=== PATIENT | female | born 1985 | race Caucasian/White ===

== ENCOUNTER 2016-11-23 19:56 | Emergency (ER) | payer BC ==
[~2016-11-23] VITALS: Ht 170.2 cm; Wt 117.4 kg
[~2016-11-23 19:56] MED LIST: DOCUSATE SODIU100 MG PO; ENDOCET 5-3251 EACH PO; FLINTSTONES M100 MCG PO; IBUPROFEN800 MG PO; NAPROSYN500 MG PO; PREDNISONE20 MG PO; SYNTHROID50 MCG PO; VALIUM2 MG PO; ZITHROMAX Z-PA250 MG PO
[2016-11-23 21:08] LABS: EOSINOPHIL (%) 0.2 % (0-5); HEMATOCRIT 47.3 % (36.0-46.0); IMMATURE GRANULOCYTE (%) 0.3 % (0.0-0.7); IMMATURE GRANULOCYTE COUNT 0.5 K/uL; LYMPHOCYTE COUNT 0.7 K/uL (1.0-2.8); MCH 32.2 PG (29.0-34.0); MCHC 34.7 G/DL (30.0-36.0); MCV 92.7 FL (83-99); MONOCYTE (%) 5.1 % (3-12); MONOCYTE COUNT 0.9 K/uL (0-0.8); NEUTROPHIL (%) 90.4 % (45-76); NEUTROPHIL COUNT 16.4 K/uL (1.8-6.4); PLATELET COUNT 307 K/uL (156-360); RBC DIS.WIDTH-CV 13.2 % (11.8-14.6); RBC DIS.WIDTH-SD 43.4 % (39-53); WHITE BLOOD COUNT 18.1 K/uL (4.1-10.2)
[2016-11-23 21:16] LABS: CHLORIDE 106 mEq/L (99-109); POTASSIUM 3.8 mEq/L (3.7-5.4); SODIUM 142 mEq/L (136-147)
[2016-11-23 21:18] LABS: GLUCOSE 126 mg/dL (70-99)
[2016-11-23 21:19] LABS: ANION GAP 16 MEQ/L (2-14)
[2016-11-23 21:20] LABS: TOTAL BILIRUBIN 0.9 mg/dL (0.0-1.0)
[2016-11-23 21:21] LABS: ALKALINE PHOSPHATASE 118 IU/L (3-129)
[2016-11-23 21:22] LABS: GFR ESTIMATE (CALCULATED) > 59 mL/min/
[2016-11-23 21:23] LABS: UREA NITROGEN (BUN) 14 mg/dL (9-23)
[2016-11-23 21:25] LABS: LIPASE 18 U/L (1.0-51.0)
[2016-11-23 22:12] LABS: ADD MIUA? YES; BILIRUBIN NEGATIVE; BLOOD TRACE; COLOR YELLOW ((YELLOW)); GLUCOSE (STRIP) NEGATIVE; KETONES NEGATIVE; LEUKOCYTES NEGATIVE; NITRITE NEGATIVE; PH, URINE 5.5 (5-8); PROTEIN (STRIP) TRACE; SPECIFIC GRAVITY 1.029 (1.000-1.030); UROBILINOGEN 0.2 MG/DL (0.2-1.0)
[2016-11-23 22:24] LABS: BACTERIA NONE SEEN; CASTS NONE SEEN /LPF; CRYSTALS NONE SEEN; EPITHELIAL CELLS 1+; MUCUS NONE SEEN; PATHOLOGICAL CAST NONE SEEN; RED BLOOD CELLS 0-5 /HPF (0-5); SMALL ROUND CELL NONE SEEN; WHITE BLOOD CELLS 0-5 /HPF (0-5); YEAST-LIKE CELL NONE SEEN
[2016-11-23] MEDS ORDERED: PHENERGAN25 MG PR (23:18)
[2016-11-23] MEDS ORDERED: PROMETHAZINE HC25 M1 PO (23:18)
[2016-11-23 23:50] VITALS: BP 121/81
[2016-11-24 01:09] LABS: C DIFF TOXIN NEGATIVE (NEGATIVE)
[2016-11-24 01:10] LABS: PROBE CHECK PASS; SPECIMEN PROCESSING CONTROL PASS
== END 2016-11-23 23:51 | disposition home or self-care (01) ==
LOC: EME 19:56 → RME 19:56
PROVIDERS: Physician Assistant
DX: R11.2 Nausea with vomiting, unspecified (principal); R19.7 Diarrhea, unspecified; E86.0 Dehydration; E03.9 Hypothyroidism, unspecified
CPT/HCPCS: 80053; 81003; 83690; 85025; 87493; 87506; 99281; 99285; J1200; J1885; J2405; J2550; J2765; J7030; Q0169

== ENCOUNTER 2017-11-26 07:09 | Emergency (ER) | payer BC ==
[~2017-11-26] VITALS: Ht 167.6 cm; Wt 114.6 kg
[~2017-11-26 07:09] MED LIST changes: +PHENERGAN25 MG PR; +PROMETHAZINE HC25 M1 PO
[2017-11-26 07:52] LABS: HEMATOCRIT 42.7 % (36.0-46.0); HEMOGLOBIN 14.8 G/DL (11.9-15.5); MCHC 34.7 G/DL (30.0-36.0); MCV 92.4 FL (83-99); RBC DIS.WIDTH-CV 13.5 % (11.8-14.6); RBC DIS.WIDTH-SD 46.1 % (39-53); RED BLOOD COUNT 4.62 M/uL (3.80-5.20); WHITE BLOOD COUNT 14.4 K/uL (4.1-10.2)
[2017-11-26 08:01] LABS: CHLORIDE 107 mEq/L (99-109); POTASSIUM 4.3 mEq/L (3.7-5.4); SODIUM 137 mEq/L (136-147)
[2017-11-26 08:02] LABS: GLUCOSE 122 mg/dL (70-99)
[2017-11-26 08:06] LABS: CREATININE 0.7 mg/dL (0.6-1.3); GFR ESTIMATE (CALCULATED) > 59 mL/min/
[2017-11-26 08:07] LABS: UREA NITROGEN (BUN) 14 mg/dL (9-23)
[2017-11-26 08:13] LABS: TROP-I INTERPRETATION NEGATIVE; TROPONIN-I 0.03 ng/mL (0.0-0.30)
[2017-11-26 08:57] LABS: PLAT.SUFFICIENCY ADEQUATE; PLATELET COUNT 253 K/uL (156-360)
[2017-11-26] MEDS ORDERED: TORADOL10 MG PO (10:44)
[2017-11-26] MEDS ORDERED: REGLAN10 MG PO (10:44)
[2017-11-26] MEDS ORDERED: PHENERGAN25 MG PR (10:44)
[2017-11-26] MEDS ORDERED: BENTYL20 MG PO (10:44)
[2017-11-26 10:55] VITALS: BP 154/67
== END 2017-11-26 10:57 | disposition home or self-care (01) ==
LOC: EME 07:09
DX: A08.4 Viral intestinal infection, unspecified (principal); R00.2 Palpitations; R01.1 Cardiac murmur, unspecified; E03.9 Hypothyroidism, unspecified; M41.9 Scoliosis, unspecified; Z88.1 Allergy status to other antibiotic agents
CPT/HCPCS: 71046; 80048; 84484; 85027; 93005; 99281; 99285; J2765